=== PATIENT | male | born 1985 | race Caucasian/White ===

== ENCOUNTER → 2017-03-18 | Outpatient (CLI) | payer OTHER ==
[2017-03-16 14:28] VITALS: BP_DIAS 58
[~2017-03-18] MED LIST: IOHEXOL 240 MG/ML 50ML VIAL. PO ONE; IOHEXOL 300 MG/ML 100ML VIAL. IV ONE
[2017-03-18 14:32] VITALS: BP_SYST 107
--- NOTE | 2017-03-18 16:44 | RAD ---
EXAM: CT abdomen/pelvis with contrast. HISTORY: Intra-abdominal abscess. TECHNIQUE: Computed tomography of the abdomen and pelvis was performed after the intravenous administration of 75 mL Omnipaque 300. COMPARISON: None. FINDINGS: Lung windows through the visualized portions of the bases reveal no abnormality. Bone windows reveal no suspicious lesions. The liver, gallbladder, spleen, adrenal glands, and pancreas are unremarkable. There are no pathologically enlarged lymph nodes. There is mild hydronephrosis on the right. There is mild urothelial enhancement and perinephric stranding. On the left, there is mild pelvocaliectasis without hydroureter. There is an ill-defined soft tissue density region in the right lower quadrant measuring 4.3 x 3.8 cm. It contains a tiny focus of gas which does not appear intraluminal. The distal ileum passes the region, and demonstrates some wall thickening. There is no drainable collection. The right ureter is indistinguishable from the soft tissue density process at that level. No additional thickened bowel loops are seen. There is no evidence of obstruction. The appendix is is suspected to be retrocecal at the inferior margin of the liver tip, arguing against appendicitis. IMPRESSION: 1. A 4.3 cm soft tissue density region in the right lower quadrant is indeterminate but appears inflammatory. The adjacent distal ileum demonstrates wall thickening in the region which may be secondary, or suggest inflammatory bowel disease as a cause. Correlate for the known diagnosis. There is no drainable collection. Follow-up to resolution is recommended to exclude neoplasm. 2. The right ureter traverses the soft tissue process and there is mild right hydronephrosis. There is also mild urothelial thickening on the right. Correlate to exclude ascending infection. *One or more of the following individualized dose reduction techniques were utilized for this examination: 1. Automated exposure control. 2. Adjustment of the mA and/or kV according to patient size. 3. Use of iterative reconstruction technique.
== END | disposition home or self-care (01) ==
LOC: CT 14:51
PROVIDERS: ATTEND Internal Medicine Infectious Disease
DX: K65.1 Peritoneal abscess (principal); L02.91 Cutaneous abscess, unspecified; N13.39 Other hydronephrosis
CPT/HCPCS: 74177; Q9966; Q9967